=== PATIENT | female | born 1985 | race Caucasian/White ===

== ENCOUNTER 2017-01-29 23:27 | Emergency (ER) | payer OTHER ==
[~2017-01-29] VITALS: Ht 165.1 cm; Wt 55.0 kg
[2017-01-29 23:29] VITALS: BP 132/65; PULSE 86; RESP 16; TEMP 98.3; O2SAT 99
[2017-01-30] MEDS ORDERED: SODIUM CHLOR 0.9% 1000 ML INJ 1,000 ML IV ONE (00:45)
[2017-01-30] MEDS ORDERED: ACETAMINOPHEN 325 MG TAB PO ONE (00:45)
[2017-01-30 01:00] LABS: AUTOMATED NEUTROPHIL # 7.9 TH/MM3 (1.8-7.7); BASOPHIL # 0.1 TH/MM3 (0-0.2); BASOPHIL % 0.6 % (0.0-2.0); EOSINOPHIL # 0.2 TH/MM3 (0-0.4); EOSINOPHIL % 1.6 % (0.0-4.0); HEMATOCRIT 33.9 % (35.0-46.0); HEMOGLOBIN 11.7 GM/DL (11.6-15.3); LYMPH % 28.4 % (9.0-44.0); LYMPHOCYTE # 3.5 TH/MM3 (1.0-4.8); MEAN CELL VOLUME 88.4 FL (80.0-100.0); MEAN CORPUSCULAR HEMOGLOBIN 30.5 PG (27.0-34.0); MEAN CORPUSCULAR HGB CONC 34.5 % (32.0-36.0); MEAN PLATELET VOLUME 8.8 FL (7.0-11.0); MONO % 5.9 % (0.0-8.0); MONOCYTE # 0.7 TH/MM3 (0-0.9); NEUT % 63.5 % (16.0-70.0); PLATELET COUNT 230 TH/MM3 (150-450); RED BLOOD COUNT 3.84 MIL/MM3 (4.00-5.30); RED CELL DISTRIBUTION WIDTH 12.7 % (11.6-17.2); WHITE BLOOD COUNT 12.4 TH/MM3 (4.0-11.0)
[2017-01-30 01:05] LABS: BACTERIA, URINE RARE /hpf; BILIRUBIN, URINE NEG (NEG); BLOOD, URINE NEG (NEG); GLUCOSE,URINE NEG (NEG); KETONE, URINE TRACE mg/dL (NEG); MUCUS URINE FEW /lpf (OCC); NITRITE,URINE NEG (NEG); PH, URINE 5.5 (5.0-8.5); SQUAMOUS EPITHELIAL CELL URINE 10 /hpf (0-5); URINE COLOR YELLOW (YELLW/STRAW); URINE LEUKOCYTE ESTERASE NEG (NEG)
[2017-01-30 01:17] LABS: ALBUMIN 3.4 GM/DL (3.4-5.0); ALT (GPT) 18 U/L (10-53); AST (GOT) 8 U/L (15-37); BICARBONATE 25.7 MEQ/L (21.0-32.0); BLOOD UREA NITROGEN 14 MG/DL (7-18); CALCIUM 8.3 MG/DL (8.5-10.1); CHLORIDE 106 MEQ/L (98-107); GLOMERULAR FILTRATION RATE 118 ML/MIN (>89); GLUCOSE,RANDOM 107 MG/DL (74-106); SODIUM (NA) 138 MEQ/L (136-145)
[2017-01-30 01:35] LABS: ALKALINE PHOSPHATASE 43 U/L (45-117); TOTAL BILIRUBIN ADULT 0.2 MG/DL (0.2-1.0); TOTAL PROTEIN 6.9 GM/DL (6.4-8.2)
[2017-01-30 02:03] VITALS: RESP 16
[2017-01-30] MEDS ORDERED: MACR100C2 PO (02:35)
--- NOTE | 2017-01-30 02:35 | PD ---
HPI Chief Complaint: Abdominal Pain Time Seen by Provider: 00:23 Travel History International Travel<30 days: No Contact w/Intl Traveler<30days: No Traveled to known affect area: No History of Present Illness HPI Patient is a 31-year-old female comes in complaining of lower abdominal cramping and . She says this been going on for the past few days, and got worse today. She also noticed some blood when she went to the bathroom today. She said some nausea, no vomiting. This is her first . She says she thinks her last menstrual period was December 22. She denies fever or chills. She denies any urinary symptoms. PFSH Past Medical History Diminished Hearing: No Reproductive: Yes (OVARIAN CYST) Tetanus Vaccination: Unknown Influenza Vaccination: No ?: Past Surgical History Surgical History: No Previous Surgery Social History Alcohol Use: No Tobacco Use: No Substance Use: No Allergies-Medications (Allergen,Severity, Reaction): Coded Allergies: No Known Allergies (Unverified , 01/29/17) Reported Meds & Prescriptions Reported Meds & Active Scripts Active No Active Prescriptions or Reported Medications Review of Systems Except as stated in HPI: all other systems reviewed are Neg General / Constitutional: No: Fever, Chills HENT: No: Headaches, Lightheadedness Cardiovascular: No: Chest Pain or Discomfort Respiratory: No: Shortness of Breath Gastrointestinal: Positive: Nausea, Abdominal Pain, No: Vomiting Genitourinary: No: Urgency, Frequency, Discharge Skin: No Rash, No Change in Pigmentation Neurologic: No: Weakness, Dizziness Physical Exam Narrative GENERAL: Awake and alert, in no acute distress. SKIN: Focused skin assessment warm/dry. No wounds. HEAD: Atraumatic. Normocephalic. EYES: Pupils equal and round. No scleral icterus. No injection or drainage. ENT: Mucous membranes pink and moist. NECK: Trachea midline. No JVD. CARDIOVASCULAR: Regular rate and rhythm. No murmur appreciated. RESPIRATORY: No accessory muscle use. Clear to auscultation. Breath sounds equal bilaterally. GASTROINTESTINAL: Abdomen soft, non-tender, nondistended. : Exam performed in the presence of a female nurse. Thin white discharge. Os is closed. There is no bleeding. No CMT. MUSCULOSKELETAL: No obvious deformities. No clubbing. No cyanosis. No edema. NEUROLOGICAL: Awake and alert. No obvious cranial nerve deficits. Motor grossly within normal limits. Normal speech. PSYCHIATRIC: Appropriate mood and affect; insight and judgment normal. Data Data Last Documented VS Vital Signs Date Time Temp Pulse Resp B/P (MAP) Pulse Ox O2 Delivery O2 Flow Rate FiO2 01/30/17 02:03 16 01/29/17 23:29 98.3 86 132/65 (87) 99 Room Air Orders Orders Iv Access Insert/Monitor (01/30/17 00:35) Complete Blood Count With Diff (01/30/17 00:35) Comprehensive Metabolic Panel (01/30/17 00:35) Urinalysis - C+S If Indicated (01/30/17 00:35) Ed Urine Pregnancytest Poc (01/30/17 00:35) Beta Hcg (Quant/Titer) (01/30/17 00:35) Sodium Chlor 0.9% 1000 Ml Inj (Ns 1000 M (01/30/17 00:45) Acetaminophen (Tylenol) (01/30/17 00:45) Type And Screen (01/30/17 00:35) Wet Prep Profile (01/30/17 00:43) Gc And Chlamydia Pcr (01/30/17 00:43) Labs Laboratory Tests Test 01/30/17 00:45 White Blood Count 12.4 TH/MM3 Red Blood Count 3.84 MIL/MM3 Hemoglobin 11.7 GM/DL Hematocrit 33.9 % Mean Corpuscular Volume 88.4 FL Mean Corpuscular Hemoglobin 30.5 PG Mean Corpuscular Hemoglobin Concent 34.5 % Red Cell Distribution Width 12.7 % Platelet Count 230 TH/MM3 Mean Platelet Volume 8.8 FL Neutrophils (%) (Auto) 63.5 % Lymphocytes (%) (Auto) 28.4 % Monocytes (%) (Auto) 5.9 % Eosinophils (%) (Auto) 1.6 % Basophils (%) (Auto) 0.6 % Neutrophils # (Auto) 7.9 TH/MM3 Lymphocytes # (Auto) 3.5 TH/MM3 Monocytes # (Auto) 0.7 TH/MM3 Eosinophils # (Auto) 0.2 TH/MM3 Basophils # (Auto) 0.1 TH/MM3 CBC Comment DIFF FINAL Differential Comment Urine Color YELLOW Urine Turbidity HAZY Urine pH 5.5 Urine Specific [place] 1.029 Urine Protein TRACE mg/dL Urine Glucose (UA) NEG mg/dL Urine Ketones TRACE mg/dL Urine Occult Blood NEG Urine Nitrite NEG Urine Bilirubin NEG Urine Urobilinogen LESS THAN 2.0 MG/DL Urine Leukocyte Esterase NEG Urine RBC LESS THAN 1 /hpf Urine WBC 1 /hpf Urine Squamous Epithelial Cells 10 /hpf Urine Bacteria RARE /hpf Urine Mucus FEW /lpf Microscopic Urinalysis Comment CULT NOT INDICATED Clue Cells (Wet Prep) NONE SEEN Vaginal Trichomonas (Wet Prep) NONE SEEN Vaginal Yeast (Wet Prep) NONE SEEN Blood Urea Nitrogen 14 MG/DL Creatinine 0.60 MG/DL Random Glucose 107 MG/DL Total Protein 6.9 GM/DL Albumin 3.4 GM/DL Calcium Level 8.3 MG/DL Alkaline Phosphatase 43 U/L Aspartate Amino Transf (AST/SGOT) 8 U/L Alanine Aminotransferase (ALT/SGPT) 18 U/L Total Bilirubin 0.2 MG/DL Sodium Level 138 MEQ/L Potassium Level 3.1 MEQ/L Chloride Level 106 MEQ/L Carbon Dioxide Level 25.7 MEQ/L Anion Gap 6 MEQ/L Estimat Glomerular Filtration Rate 118 ML/MIN Human Chorionic Gonadotropin, Quant 1365 MIU/ML MDM Medical Decision Making Medical Screen Exam Complete: Yes Emergency Medical Condition: Yes Medical Record Reviewed: Yes Differential Diagnosis UTI versus threatened versus dehydration Narrative Course Patient is a 31-year-old female comes in complaining of lower abdominal cramping in . Exam shows no acute abnormalities. IV established, labs sent. Beta hCG is 1365. This is likely early . Urinalysis shows some bacteria. Patient given IV fluids and Tylenol. She is resting comfortably. She'll be discharged with a prescription for Macrobid. She is advised follow-up with OB. Advised to have her beta hCG repeated in 2 days to make sure it is rising appropriately. Advised to return to the ED as needed for any worsening symptoms. Diagnosis Primary Impression: UTI (urinary tract infection) in in first trimester Patient Instructions: General Instructions, Urinary Tract Infection in (ED) Additional Instructions: Have Your beta hCG repeated in 2 days. Drink plenty of fluids. Take all of your antibiotic. Return to the ED as needed for any worsening symptoms. Scripts Nitrofurantoin Monohydrate Macrocrystals (Macrobid) 100 Mg Capsule 100 MG PO BID for Infection for 7 Days, #14 CAP 0 Refills Prov: Judy Lauren MD 01/30/17 Disposition: 01 DISCHARGE HOME Condition: Stable Judy Lauren MD Jan 30, 2017 02:35
== END 2017-01-30 02:47 | disposition home or self-care (01) ==
LOC: NEPC 23:27
DX: O23.41 Unspecified infection of urinary tract in pregnancy, first trimester (principal); Z3A.00 Weeks of gestation of pregnancy not specified
CPT/HCPCS: 80053; 81001; 84702; 84703; 85025; 86850; 86900; 86901; 87210; 87491; 87591; 99283

== ENCOUNTER 2017-01-31 22:28 | Emergency (ER) | payer OTHER ==
[~2017-01-31] VITALS: Ht 165.1 cm; Wt 55.0 kg
[~2017-01-31 22:28] MED LIST: MACR100C2 PO
[2017-01-31 22:29] VITALS: BP 119/68; PULSE 65; RESP 16; TEMP 98.4; O2SAT 99
--- NOTE | 2017-01-31 23:15 | PD ---
HPI Chief Complaint: Medical Clearance Time Seen by Provider: 22:51 Travel History International Travel<30 days: No Contact w/Intl Traveler<30days: No Traveled to known affect area: No History of Present Illness HPI Patient is a 31-year-old female presenting to the emergency for repeat hCG level. Patient was seen and evaluated 2 days ago, a was confirmed with an HCG level of 1365. She has not had any vaginal bleeding, cramping or related complaints since that time. [facility] Past Medical History Diabetes: No Patient Takes Glucophage: No Diminished Hearing: No Reproductive: Yes (OVARIAN CYST) Immunizations Current: Yes Tetanus Vaccination: > 5 Years Influenza Vaccination: No ?: LMP: 12/22/16 Social History Alcohol Use: No Tobacco Use: No Substance Use: No Allergies-Medications (Allergen,Severity, Reaction): Coded Allergies: No Known Allergies (Unverified , 01/31/17) Reported Meds & Prescriptions Reported Meds & Active Scripts Active Macrobid (Nitrofurantoin Monohydrate Macrocrystals) 100 Mg Capsule 100 Mg PO BID 7 Days Review of Systems Except as stated in HPI: all other systems reviewed are Neg Physical Exam Narrative GENERAL: Well-developed, well-nourished, alert female. Resting in no acute distress. SKIN: Warm and dry. HEAD: Normocephalic. EYES: No scleral icterus. No injection or drainage. NECK: Supple, trachea midline. No JVD or lymphadenopathy. CARDIOVASCULAR: Regular rate and rhythm without murmurs, gallops, or rubs. RESPIRATORY: Breath sounds equal bilaterally. No accessory muscle use. GASTROINTESTINAL: Abdomen soft, non-tender, nondistended. MUSCULOSKELETAL: No cyanosis, or edema. BACK: Nontender without obvious deformity. No CVA tenderness. Data Data Last Documented VS Vital Signs Date Time Temp Pulse Resp B/P (MAP) Pulse Ox O2 Delivery O2 Flow Rate FiO2 01/31/17 22:29 98.4 65 16 119/68 (85) 99 Room Air Orders Orders Beta Hcg (Quant/Titer) (01/31/17 22:51) Labs Laboratory Tests Test 01/31/17 22:57 Human Chorionic Gonadotropin, Quant 2915 MIU/ML MDM Medical Decision Making Medical Screen Exam Complete: Yes Emergency Medical Condition: Yes Medical Record Reviewed: Yes Interpretation(s) Laboratory Tests Test 01/31/17 22:57 Human Chorionic Gonadotropin, Quant 2915 MIU/ML Vital Signs Date Time Temp Pulse Resp B/P (MAP) Pulse Ox O2 Delivery O2 Flow Rate FiO2 01/31/17 22:29 98.4 65 16 119/68 (85) 99 Room Air Differential Diagnosis Threatened versus normal versus abnormal labs versus other Narrative Course Patient presented for repeat HCG level. Her vital signs are stable. Labs ordered and pending. Initial HCG on 01/30/17 was 1355, HCG level today is 2915. Patient is encouraged to follow-up with SIMPLEX OPERATOR, she is encouraged to complete course of antibiotics as previously prescribed. She is encouraged return to emergency department for any new or worsening symptoms. Patient verbalized understanding of instructions. Patient is stable for discharge. Diagnosis Primary Impression: Elevated level of quantitative human chorionic gonadotropin (hCG) for gestational age in early Referrals: Cable Tender Call to schedule an appointment Patient Instructions: First Trimester (ED), General Instructions Additional Instructions: Follow-up with an SIMPLEX OPERATOR Complete course of antibiotics as previously prescribed Return to emergency department for any new or worsening symptoms Med/Other Pt SpecificInfo: No Change to Meds Disposition: 01 DISCHARGE HOME Condition: Stable Sierra Carrizales Jan 31, 2017 23:15
--- NOTE | 2017-01-31 23:15 | PD ---
HPI Chief Complaint: Medical Clearance Time Seen by Provider: 22:51 Travel History International Travel<30 days: No Contact w/Intl Traveler<30days: No Traveled to known affect area: No History of Present Illness HPI Patient is a 31-year-old female presenting to the emergency for repeat hCG level. Patient was seen and evaluated 2 days ago, a was confirmed with an HCG level of 1365. She has not had any vaginal bleeding, cramping or related complaints since that time. [facility] Past Medical History Diabetes: No Patient Takes Glucophage: No Diminished Hearing: No Reproductive: Yes (OVARIAN CYST) Immunizations Current: Yes Tetanus Vaccination: > 5 Years Influenza Vaccination: No ?: LMP: 12/22/16 Social History Alcohol Use: No Tobacco Use: No Substance Use: No Allergies-Medications (Allergen,Severity, Reaction): Coded Allergies: No Known Allergies (Unverified , 01/31/17) Reported Meds & Prescriptions Reported Meds & Active Scripts Active Macrobid (Nitrofurantoin Monohydrate Macrocrystals) 100 Mg Capsule 100 Mg PO BID 7 Days Review of Systems Except as stated in HPI: all other systems reviewed are Neg Physical Exam Narrative GENERAL: Well-developed, well-nourished, alert female. Resting in no acute distress. SKIN: Warm and dry. HEAD: Normocephalic. EYES: No scleral icterus. No injection or drainage. NECK: Supple, trachea midline. No JVD or lymphadenopathy. CARDIOVASCULAR: Regular rate and rhythm without murmurs, gallops, or rubs. RESPIRATORY: Breath sounds equal bilaterally. No accessory muscle use. GASTROINTESTINAL: Abdomen soft, non-tender, nondistended. MUSCULOSKELETAL: No cyanosis, or edema. BACK: Nontender without obvious deformity. No CVA tenderness. Data Data Last Documented VS Vital Signs Date Time Temp Pulse Resp B/P (MAP) Pulse Ox O2 Delivery O2 Flow Rate FiO2 01/31/17 22:29 98.4 65 16 119/68 (85) 99 Room Air Orders Orders Beta Hcg (Quant/Titer) (01/31/17 22:51) Labs Laboratory Tests Test 01/31/17 22:57 Human Chorionic Gonadotropin, Quant 2915 MIU/ML MDM Medical Decision Making Medical Screen Exam Complete: Yes Emergency Medical Condition: Yes Medical Record Reviewed: Yes Interpretation(s) Laboratory Tests Test 01/31/17 22:57 Human Chorionic Gonadotropin, Quant 2915 MIU/ML Vital Signs Date Time Temp Pulse Resp B/P (MAP) Pulse Ox O2 Delivery O2 Flow Rate FiO2 01/31/17 22:29 98.4 65 16 119/68 (85) 99 Room Air Differential Diagnosis Threatened versus normal versus abnormal labs versus other Narrative Course Patient presented for repeat HCG level. Her vital signs are stable. Labs ordered and pending. Initial HCG on 01/30/17 was 1355, HCG level today is 2915. Patient is encouraged to follow-up with SKIMMER REVERBERATORY, she is encouraged to complete course of antibiotics as previously prescribed. She is encouraged return to emergency department for any new or worsening symptoms. Patient verbalized understanding of instructions. Patient is stable for discharge. Diagnosis Primary Impression: Elevated level of quantitative human chorionic gonadotropin (hCG) for gestational age in early Referrals: Property Developer Call to schedule an appointment Patient Instructions: First Trimester (ED), General Instructions Additional Instructions: Follow-up with an SKIMMER REVERBERATORY Complete course of antibiotics as previously prescribed Return to emergency department for any new or worsening symptoms Med/Other Pt SpecificInfo: No Change to Meds Disposition: 01 DISCHARGE HOME Condition: Stable Sierra Carrizales Jan 31, 2017 23:15
--- NOTE | 2017-01-31 23:15 | PD ---
HPI Chief Complaint: Medical Clearance Time Seen by Provider: 22:51 Travel History International Travel<30 days: No Contact w/Intl Traveler<30days: No Traveled to known affect area: No History of Present Illness HPI Patient is a 31-year-old female presenting to the emergency for repeat hCG level. Patient was seen and evaluated 2 days ago, a was confirmed with an HCG level of 1365. She has not had any vaginal bleeding, cramping or related complaints since that time. [facility] Past Medical History Diabetes: No Patient Takes Glucophage: No Diminished Hearing: No Reproductive: Yes (OVARIAN CYST) Immunizations Current: Yes Tetanus Vaccination: > 5 Years Influenza Vaccination: No ?: LMP: 12/22/16 Social History Alcohol Use: No Tobacco Use: No Substance Use: No Allergies-Medications (Allergen,Severity, Reaction): Coded Allergies: No Known Allergies (Unverified , 01/31/17) Reported Meds & Prescriptions Reported Meds & Active Scripts Active Macrobid (Nitrofurantoin Monohydrate Macrocrystals) 100 Mg Capsule 100 Mg PO BID 7 Days Review of Systems Except as stated in HPI: all other systems reviewed are Neg Physical Exam Narrative GENERAL: Well-developed, well-nourished, alert female. Resting in no acute distress. SKIN: Warm and dry. HEAD: Normocephalic. EYES: No scleral icterus. No injection or drainage. NECK: Supple, trachea midline. No JVD or lymphadenopathy. CARDIOVASCULAR: Regular rate and rhythm without murmurs, gallops, or rubs. RESPIRATORY: Breath sounds equal bilaterally. No accessory muscle use. GASTROINTESTINAL: Abdomen soft, non-tender, nondistended. MUSCULOSKELETAL: No cyanosis, or edema. BACK: Nontender without obvious deformity. No CVA tenderness. Data Data Last Documented VS Vital Signs Date Time Temp Pulse Resp B/P (MAP) Pulse Ox O2 Delivery O2 Flow Rate FiO2 01/31/17 22:29 98.4 65 16 119/68 (85) 99 Room Air Orders Orders Beta Hcg (Quant/Titer) (01/31/17 22:51) Labs Laboratory Tests Test 01/31/17 22:57 Human Chorionic Gonadotropin, Quant 2915 MIU/ML MDM Medical Decision Making Medical Screen Exam Complete: Yes Emergency Medical Condition: Yes Medical Record Reviewed: Yes Interpretation(s) Laboratory Tests Test 01/31/17 22:57 Human Chorionic Gonadotropin, Quant 2915 MIU/ML Vital Signs Date Time Temp Pulse Resp B/P (MAP) Pulse Ox O2 Delivery O2 Flow Rate FiO2 01/31/17 22:29 98.4 65 16 119/68 (85) 99 Room Air Differential Diagnosis Threatened versus normal versus abnormal labs versus other Narrative Course Patient presented for repeat HCG level. Her vital signs are stable. Labs ordered and pending. Initial HCG on 01/30/17 was 1355, HCG level today is 2915. Patient is encouraged to follow-up with PROOF TECHNICIAN HELPER, she is encouraged to complete course of antibiotics as previously prescribed. She is encouraged return to emergency department for any new or worsening symptoms. Patient verbalized understanding of instructions. Patient is stable for discharge. Diagnosis Primary Impression: Elevated level of quantitative human chorionic gonadotropin (hCG) for gestational age in early Referrals: Surveillance Sensor Operator Call to schedule an appointment Patient Instructions: First Trimester (ED), General Instructions Additional Instructions: Follow-up with an PROOF TECHNICIAN HELPER Complete course of antibiotics as previously prescribed Return to emergency department for any new or worsening symptoms Med/Other Pt SpecificInfo: No Change to Meds Disposition: 01 DISCHARGE HOME Condition: Stable Sierra Carrizales Jan 31, 2017 23:15
== END 2017-02-01 00:52 | disposition home or self-care (01) ==
LOC: NEPD 22:28
DX: Z32.01 Encounter for pregnancy test, result positive (principal)
CPT/HCPCS: 84702; 99281

== ENCOUNTER 2017-02-11 18:43 | Emergency (ER) | payer OTHER ==
[~2017-02-11] VITALS: Ht 154.9 cm; Wt 55.0 kg
[2017-02-11 18:44] VITALS: BP 124/71; PULSE 90; RESP 20; TEMP 98.1; O2SAT 100
[2017-02-11 20:01] LABS: BLOOD, URINE NEG (NEG); COMMENT (UR) CULT NOT INDICATED; CULTURE IF INDICATED CULT NOT INDICATED; GLUCOSE,URINE NEG (NEG); KETONE, URINE NEG (NEG); NITRITE,URINE NEG (NEG); PH, URINE 6.5 (5.0-8.5); SQUAMOUS EPITHELIAL CELL URINE 1 /hpf (0-5); URINE COLOR COLORLESS (YELLW/STRAW)
[2017-02-11 20:36] LABS: BETA HCG QUANT 39434 MIU/ML (0-5)
--- NOTE | 2017-02-11 20:53 | PD ---
HPI . pelvic pain Chief Complaint: Data Scientist Problem/Complaint Time Seen by Provider: 19:04 Travel History International Travel<30 days: No Contact w/Intl Traveler<30days: No Traveled to known affect area: No History of Present Illness HPI This patient presents with the chief complaint of pelvic pain. It is midline. Onset has been several weeks but it became acutely worse tonight. She describes it as cramping. She rates at 8/10. It is exacerbated by being on her feet all day. Associated symptoms include nausea and a white vaginal discharge. The patient reports that she is 7 and 9 weeks by dates. [facility] Past Medical History High Cholesterol: Yes Diabetes: No Diminished Hearing: No Reproductive: Yes (OVARIAN CYST) Immunizations Current: Yes Tetanus Vaccination: Unknown ?: Past Surgical History Surgical History: No Previous Surgery Social History Alcohol Use: No Tobacco Use: No Substance Use: No Allergies-Medications (Allergen,Severity, Reaction): Coded Allergies: No Known Allergies (Unverified Adverse Reaction, Unknown, 02/11/17) Reported Meds & Prescriptions Reported Meds & Active Scripts Active Review of Systems Except as stated in HPI: all other systems reviewed are Neg Genitourinary: Positive: Pelvic Pain, Discharge Physical Exam Narrative GENERAL: Awake and alert and in no acute distress. SKIN: warm/dry. HEAD: Normocephalic. Atraumatic. EYES: Pupils equal and round. No scleral icterus. No injection or drainage. ENT: No nasal bleeding or discharge. Mucous membranes pink and moist. NECK: Trachea midline. Full range of motion without pain.. CARDIOVASCULAR: Regular rate and rhythm. RESPIRATORY: No accessory muscle use. Clear to auscultation. Breath sounds equal bilaterally. GASTROINTESTINAL: Abdomen soft. Bowel sounds present. Nondistended. Mild suprapubic tenderness. MUSCULOSKELETAL: No obvious deformities. NEUROLOGICAL: Awake and alert. No obvious cranial nerve deficits. Motor grossly within normal limits. Normal speech. PSYCHIATRIC: Appropriate mood and affect; insight and judgment normal. Data Data Last Documented VS Vital Signs Date Time Temp Pulse Resp B/P (MAP) Pulse Ox O2 Delivery O2 Flow Rate FiO2 02/11/17 18:44 98.1 90 20 124/71 (88) 100 Room Air Orders Orders Beta Hcg (Quant/Titer) (02/11/17 19:04) Us Pelvis (Ques Pr/Ect)W Trans (02/11/17 ) Urinalysis - C+S If Indicated (02/11/17 19:04) Ed Poc Ultrasound (02/11/17 19:04) Labs Laboratory Tests Test 02/11/17 19:25 02/11/17 19:35 Urine Color COLORLESS Urine Turbidity CLEAR Urine pH 6.5 Urine Specific [place] 1.006 Urine Protein NEG mg/dL Urine Glucose (UA) NEG mg/dL Urine Ketones NEG mg/dL Urine Occult Blood NEG Urine Nitrite NEG Urine Bilirubin NEG Urine Urobilinogen LESS THAN 2.0 MG/DL Urine Leukocyte Esterase NEG Urine Squamous Epithelial Cells 1 /hpf Urine Amorphous Sediment RARE Microscopic Urinalysis Comment CULT NOT INDICATED Human Chorionic Gonadotropin, Quant 27700 MIU/ML MDM Medical Decision Making Medical Screen Exam Complete: Yes Emergency Medical Condition: Yes Medical Record Reviewed: Yes (patient was seen here on 01/29 with a quantitative hCG of 1365. She was seen again on 01/31 with a quantitative hCG of 2915.) Differential Diagnosis Differential diagnosis of pelvic pain includes but is not limited to UTI, PID, ectopic , spontaneous AB, constipation, viral illness Narrative Course This patient presents stating that she is and is having pelvic pain. UA>>neg Beta HCG 43209 US: 1. Early intrauterine corresponding to 6 weeks 5 day menstrual age. 2. Unremarkable ovaries with small amount of fluid in the cul-de-sac. This patient is stable for discharge to home. She needs to follow-up with OB. Procedures Procedure Narrative Emergency Department Pelvic ultrasound was performed with patient consent. The curvilinear probe was used in the transverse and sagittal views within the suprapubic region revealing a "flicker" in the uterus. Diagnosis Primary Impression: Pelvic pain affecting Qualified Codes: O26.891 - Other specified related conditions, first trimester; R10.2 - Pelvic and perineal pain Patient Instructions: Abdominal Pain in (ED), General Instructions Additional Instructions: You may take Tylenol as needed for pain. You need to get established with an water pump assembler. Disposition: 01 DISCHARGE HOME Condition: Stable Denisha Plaza MD Feb 11, 2017 20:53
--- NOTE | 2017-02-11 21:01 | RADRPT ---
EXAM DATE/TIME: 02/11/2017 20:02 [place] COMPARISON: No previous studies available for comparison. INDICATIONS : Pelvic pain. LAB(S): Beta-hC MEDICAL HISTORY : Glasses. Ovarian cysts. SURGICAL HISTORY : None. ENCOUNTER: Initial ACUITY: 1 day PAIN SCORE: 7/10 LOCATION: Bilateral pelvis MEASUREMENTS: UTERUS: 9.4 x 5.9 x 4.9 cm ENDOMETRIAL STRIPE: 15 mm RIGHT OVARY: 2.9 x 1.3 x 1.5 cm LEFT OVARY: 3.7 x 3.1 x 1.9 cm FREE FLUID: Yes CROWN RUMP LENGTH: 0.8 = 6 WKS 5 DAYS FHR: 154 BPM FINDINGS: UTERUS: There is an early single intrauterine with well-defined gestational sac. The crown-rump glenda gth corresponds to a 6 week 5 day menstrual age. heart rate of 154 beats per minute was obtaine d. RIGHT OVARY: Ovary contains no mass or significant cystic lesion. LEFT OVARY: Ovary contains no mass or significant cystic lesion. MISCELLANEOUS: There is a small amount of free fluid in the cul-de-sac. CONCLUSION: 1. Early intrauterine corresponding to 6 weeks 5 day menstrual age. 2. Unremarkable ovaries with small amount of fluid in the cul-de-sac. Bhavesh Flower MD on February 11, 2017 at 20:58 Board Certified Radiologist. This report was verified electronically.
== END 2017-02-11 21:35 | disposition home or self-care (01) ==
LOC: NEPE 18:43
DX: O26.891 Other specified pregnancy related conditions, first trimester (principal); R10.2 Pelvic and perineal pain; E78.00 Pure hypercholesterolemia, unspecified; Z87.42 Personal history of other diseases of the female genital tract; Z3A.01 Less than 8 weeks gestation of pregnancy
CPT/HCPCS: 76700; 76817; 81001; 84702

== ENCOUNTER 2017-05-28 11:40 | Emergency (ER) | payer OTHER ==
[2017-05-28 12:10] VITALS: PULSE 92
[2017-05-28 12:15] VITALS: PULSE 85
--- NOTE | 2017-05-28 12:25 | PD ---
HPI Chief Complaint low blood pressure, cramping Date Seen: May 28, 2017 Time Seen: 12:19 Travel History International Travel<30 Days: No Contact w/Intl Traveler<30Days: No Known Affected Area: No History of Present Illness HPI Pt is a 31y/o G1 @ 22.3wks. She has PNC with Dr. Allan. She states that yesterday she had an US and while laying down for it, her BP dropped to 90/60 and she was dizzy/nauseous. She was advised to come to the hospital but felt better quickly so she did not. Today, she said she felt like her BP was low again so she came in for evaluation. She states baseline for her is 110/60s. She also reports that she has experienced cramping throughout her . No ctx, LOF, or VB. +FM. She states that she is hydrating with H2O. Weeks Gestation: 22 Para: 0 : 1 History Past Medical History Medical History: Denies Significant Hx Past Surgical History Surgical History: No Previous Surgery Family History Family History: Negative Social History Alcohol Use: No Tobacco Use: No Substance Abuse: No Allergies-Medications (Allergen,Severity, Reaction): Coded Allergies: No Known Allergies (Unverified Adverse Reaction, Unknown, 02/11/17) Review of Systems Except as stated in HPI: all other systems reviewed are Neg Physical Exam Narrative General: well developed, well nourished, no acute distress, petite HEENT: normocephalic atraumatic, extraocular movements intact, neck supple Abdomen: soft, gravid, nontender, nondistended Uterus: fundus at umbilicus Extremities: full range of motion Skin: normal coloration, no rashes, no suspicious skin lesions noted Neurologic: cranial nerves 2-12 grossly intact Psychiatric: normal mood and affect, appropriate FHTs: present @ 140s [place]: quiet Data Data Vital Signs Reviewed: Yes Orders Orders Vital Signs (Adult) .ON ADMISSION (05/28/17 12:18) ^ Labor Status (05/28/17 12:18) Heart (05/28/17 12:18) Urinalysis - C+S If Indicated (05/28/17 12:18) Ed Discharge Order (05/28/17 12:18) MDM Plan 31y/o G1 @ 22.3wks with low blood pressure and cramping. -- +FHTs -- toco quiet -- UA neg for UTI, sp grav 1.015 -- reassured pt that her BP is appropriate for her size, increase oral hydration and include gatorade for the electrolytes -- cramping is chronic Dispo: stable for d/c home with precautions Diagnosis Diagnosis: Primary Impression: 22 weeks gestation of Additional Impressions: Low blood pressure Cramping complicating , antepartum Nixon Fam MD May 28, 2017 12:25
== END 2017-05-28 12:34 | disposition home or self-care (01) ==
LOC: HOBED 11:40
DX: O26.52 Maternal hypotension syndrome, second trimester (principal); Z3A.22 22 weeks gestation of pregnancy
CPT/HCPCS: 99283

== ENCOUNTER 2017-08-19 00:01 | Emergency (ER) | payer OTHER ==
[2017-08-19] MEDS ORDERED: ACETAMINOPHEN 325 MG TAB PO ONE (00:45)
[2017-08-19] MEDS ORDERED: TERBUTALINE INJ 1 MG/ML AMP SQ PRN (00:45)
[2017-08-19] MEDS ORDERED: ONDANSETRON HCL 4 MG/2 ML VIAL IV PUSH ONE (00:45)
--- NOTE | 2017-08-19 00:54 | PD ---
HPI Chief Complaint Abdominal pain, left sided tooth pain only noted today Date Seen: August 19, 2017 Time Seen: 00:47 Travel History International Travel<30 Days: No Contact w/Intl Traveler<30Days: No Known Affected Area: No History of Present Illness HPI Patient is 31-year-old white female at [address] Allan for care and presents complaining of abdominal pain that began today and worsening left-sided jaw and teeth pain noted today, her jaw and tooth ailment is more of a problem for her than anything else hours on exam she is shahram every 3-4 minutes, heart rate tracing is reactive. Patient has had 2 fibronectin is that were positive with Dr. Allan and her office last one positive was 2 weeks ago Weeks Gestation: 34 Para: 0 : 1 History Obstetric History Obstetric History Positive fibronectin sent with this 2 Social History Alcohol Use: No Tobacco Use: No Substance Abuse: No Allergies-Medications (Allergen,Severity, Reaction): Coded Allergies: No Known Allergies (Unverified Adverse Reaction, Unknown, 02/11/17) Review of Systems General / Constitutional: No: Fever, Weight Gain, Chills, Other Eyes: No: Diploplia, Blurred Vision, Visual changes, Pain, Photophobia HENT: Dental Difficulties, No: Headaches, Vertigo, Lightheadedness Cardiovascular: No: Irregular Rhythm, Chest Pain or Discomfort, Palpitations, Tachycardia, Syncope, Varicosities, Edema, Cyanosis Respiratory: No: Cough, Short of Breath, Other Gastrointestinal: Abdominal Pain, No: Nausea, Vomiting, Diarrhea Genitourinary: No: Decreased Urinary Output, Oliguria Musculoskeletal: No: Limited ROM, Weakness, Cramping, Edema, Pain Skin: No Rash, No Itching, No Dryness, No Lumps, No Change in Pigmentation, No Change in Nails, No Alopecia, No Lesions Neurologic: No: Weakness, Dizziness, Syncope, Focal Abnormalities, Coordination Problem, Headache, Slurred Speech, Seizures Psychiatric: No: Depression, Suicidal Ideations, Homicidal Ideation Endocrine: No: Heat Intolerance, Cold Intolerance, Polydipsia, Polyuria, Other Physical Exam Narrative GENERAL: Well-nourished, well-developed patient. SKIN: Warm and dry. HEAD: Normocephalic and atraumatic. EYES: No scleral icterus. No injection or drainage. ENT: No nasal drainage noted. Mucous membranes pink. Airway patent. NECK: Supple, trachea midline. No JVD. CARDIOVASCULAR: Regular rate and rhythm without murmurs, gallops, or rubs. RESPIRATORY: Breath sounds equal bilaterally. No accessory muscle use. BREASTS: Bilateral exam showed no masses , no retractions, no nipple discharge. ABDOMEN/GI: Abdomen soft, non-tender, bowel sounds present, no rebound, no guarding Gravid to [34-] weeks size Fundal Height: [-34] GENITOURINARY: External Genitalia: intact and normal in appearance BUS glands: [-] Cervix: [post-] Dilatation: [External os fingertip internal os closed-] Effacement: [0-] Station: [-3] Membranes: [intact ] Uterine Contractions: [q 3 min-] FHT's: Category: [1-] Baseline: [133-] Reactive: [R-] Variability: [mod-] Decels: [-0] EXTREMITIES: No cyanosis or edema. BACK: Nontender without obvious deformity. No CVA tenderness. NEUROLOGICAL: Awake and alert. Motor and sensory grossly within normal limits. Five out of 5 muscle strength in all muscle groups. Normal speech. Data Data Orders Orders Vital Signs (Adult) .ON ADMISSION (08/19/17 00:45) ^ Labor Status (08/19/17 00:45) ^ Non Stress Test (08/19/17 00:45) Lactated Ringer's 1000 Ml Inj (Lr 1000 M (08/19/17 00:45) Acetaminophen (Tylenol) (08/19/17 00:45) Ondansetron Inj (Zofran Inj) (08/19/17 00:45) Terbutaline Inj (Brethine Inj) (08/19/17 00:45) Labs OB ED urine dip is negative for infection but positive for ketones the patient may be somewhat anorexic MDM Interpretation(s) Patient is 31-year-old white female G one P0 at [address] Allan presents complaining of abdominal pain today but worsening left-sided teeth and jaw pain. heart rate tracing is reactive she is shahram every 3-4 minutes. Cervix is closed at the internal os. Plan Plan is to IV hydrate, sedate, medicate with subcu terbutaline as first-line tocolyse is, as the patient's artery had 2 positive fibronectin last one was 2 weeks ago I did not repeat that tonight If contractions subside then we will discharge home to bedrest, Tylenol, heating pad on her abdomen is needed or hot bath and to follow-up with Dr. Allan, the patient may need to see a dentist about her teeth as I looked in her mouth but cannot see any redness inflammation pus or abnormality Diagnosis Diagnosis: Primary Impression: Threatened labor, antepartum Additional Impressions: Pain in a tooth or teeth 34 weeks gestation of Disposition: 01 DISCHARGE HOME Condition: Stable Patient Instructions: General Instructions, Labor (ED), Movement (ED), Abdominal Pain in (ED) Departure Forms: Tests/Procedures Boby Corbin II, MD August 19, 2017 00:54
[2017-08-19] MEDS ORDERED: LACTATED RINGER'S 1000 ML INJ 1,000 ML IV SCH (01:00)
[2017-08-19 01:04] VITALS: BP 107/62; PULSE 82
[2017-08-19 01:37] VITALS: BP 122/67; PULSE 90
[2017-08-19 02:29] VITALS: BP 118/71; PULSE 104
== END 2017-08-19 03:04 | disposition home or self-care (01) ==
LOC: HOBED 00:01
DX: O47.03 False labor before 37 completed weeks of gestation, third trimester (principal); Z3A.34 34 weeks gestation of pregnancy
CPT/HCPCS: 59025; 96372; 96374; 96375; 99284; J2405; J3010; J3105; J7120

== ENCOUNTER 2017-08-22 20:28 | Observation (INO) | payer OTHER ==
[2017-08-22] VITALS (20 sets, daily range): PULSE 77–91
[~2017-08-22] VITALS: Ht 165.1 cm; Wt 72.6 kg
[2017-08-22] MEDS ORDERED: PREN1TAB45 PO (21:11)
[2017-08-22] MEDS ORDERED: AMOX500C PO (21:11)
--- NOTE | 2017-08-22 21:12 | PD ---
HPI Chief Complaint Contractions Travel History International Travel<30 Days: No Contact w/Intl Traveler<30Days: No Known Affected Area: No History of Present Illness HPI 31y/o , IUP at 34.5 care uncomplicated per patient The patient presents complaining of [place] Sharma contractions that are "out of control." She reports constant lower abdominal pain that is worse with applied pressure and constant pelvic pressure. She reports her contractions have increased over the past 3 days and become very uncomfortable over the past 3 hours. She is unable to report a specific frequency to her contractions, just reports they are constant. She denies any LOF or VB. She reports good FM. She denies any other Ob complaints. 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 Past Surgical History Surgical History: No Previous Surgery Family History Narrative Family History DM CAD RI HTN Hypercholesterolemia Social History Alcohol Use: No Tobacco Use: No Substance Abuse: No Allergies-Medications (Allergen,Severity, Reaction): Coded Allergies: No Known Allergies (Unverified Allergy, Unknown, 08/22/17) Home Meds Reported Medications Amoxicillin (Amoxicillin) 500 Mg Cap, 500 MG PO TID for Infection, CAP 0 Refills 08/22/17 Vit,Calc76/Iron/Folic (Pnv 29-1 Tablet) 29 Mg Iron-1 Mg Tablet, 1 TAB PO DAILY 08/22/17 Review of Systems Except as stated in HPI: all other systems reviewed are Neg Physical Exam Narrative GENERAL: Well-nourished, well-developed patient. SKIN: Warm and dry. HEAD: Normocephalic and atraumatic. EYES: No scleral icterus. No injection or drainage. ENT: No nasal drainage noted. Mucous membranes pink. Airway patent. NECK: Supple, trachea midline. No JVD. CARDIOVASCULAR: Regular rate and rhythm without murmurs, gallops, or rubs. RESPIRATORY: Breath sounds equal bilaterally. No accessory muscle use. BREASTS: Deferred ABDOMEN/GI: Abdomen soft, non-tender, bowel sounds present, no rebound, no guarding Gravid GENITOURINARY: External Genitalia: intact and normal in appearance. Normal EGBUS. No cervical or vaginal masses. Physiologic discharge, grossly normal rugae. SVE 1/ 50/-3. FHT's: EXTREMITIES: No cyanosis or edema. BACK: Nontender without obvious deformity. NEUROLOGICAL: Awake and alert. Motor and sensory grossly within normal limits. Normal speech. Psychiatric: grossly normal memory/affect Musculoskeletal: grossly normal ROM, gait, muscle strength MDM Plan Assessment/Plan: 1. IUP at 34.5 2. Threatened labor: no evidence of labor at this time, will give IVF bolus due to contractions. SVE and was 1 cm in the office earlier this week. Strict labor precautions. Has had a positive FFN on . Would start antibiotics for GBS prophylaxis if in labor. 3. wellbein minute FHR deceleration with tetanic contraction. No further decelerations, discussed with Dr. Adkins, will admit overnight for 23 hour observation for prolonged monitoring and observation for abdominal pain. 4. Urine dip negative Pauline Marcum MD August 22, 2017 21:12
--- NOTE | 2017-08-22 22:14 | PD ---
History of Present Illness History of Present Illness NST report Indications: IUP at 34w, abdominal pain FHR: heart rate baseline in the 120s to 130s with moderate bean picker variability and good accels. The patient had a 5 minute tetanic contraction which was followed by a 3 minute FHR deceleration to the 60s-70s. This resolved with repositioning and did not reoccur. F/U: continue EFM Final dx: IUP at 34w, threatened labor, heart rate deceleration although reassuring at present time Pauline Marcum MD August 22, 2017 22:14
[2017-08-22] MEDS ORDERED: ONDANSETRON ODT 4 MG TAB PO PRN (22:15)
[2017-08-22] MEDS ORDERED: SODIUM CHLORIDE 0.9% FLUSH 10 ML FLUSH IV FLUSH PRN (22:15)
[2017-08-22] MEDS ORDERED: ACETAMINOPHEN 325 MG TAB PO PRN (22:15)
[2017-08-22] MEDS ORDERED: ZOLPIDEM TARTRATE 5 MG TAB PO PRN (22:15)
[2017-08-22] MEDS ORDERED: LACTATED RINGER'S 1000 ML INJ 1,000 ML IV ONE (22:45)
[2017-08-22] MEDS ORDERED: AMOXICILLIN (TRIHYDRATE) 500 MG CAP PO ONE (23:45)
[2017-08-23] VITALS (83 sets, daily range): BP systolic 100–111; BP diastolic 57–66; PULSE 77–99; RESP 18; TEMP 98.1
[2017-08-23 00:15] LABS: AUTOMATED NEUTROPHIL # 10.3 TH/MM3 (1.8-7.7); BASOPHIL # 0.1 TH/MM3 (0-0.2); BASOPHIL % 0.4 % (0.0-2.0); EOSINOPHIL # 0.1 TH/MM3 (0-0.4); EOSINOPHIL % 0.8 % (0.0-4.0); HEMATOCRIT 31.7 % (35.0-46.0); HEMOGLOBIN 11.2 GM/DL (11.6-15.3); LYMPH % 18.5 % (9.0-44.0); LYMPHOCYTE # 2.6 TH/MM3 (1.0-4.8); MEAN CELL VOLUME 90.7 FL (80.0-100.0); MEAN CORPUSCULAR HEMOGLOBIN 31.9 PG (27.0-34.0); MEAN CORPUSCULAR HGB CONC 35.2 % (32.0-36.0); MEAN PLATELET VOLUME 8.9 FL (7.0-11.0); MONO % 6.3 % (0.0-8.0); MONOCYTE # 0.9 TH/MM3 (0-0.9); PLATELET COUNT 200 TH/MM3 (150-450); RED CELL DISTRIBUTION WIDTH 12.9 % (11.6-17.2); WHITE BLOOD COUNT 13.9 TH/MM3 (4.0-11.0)
--- NOTE | 2017-08-23 07:51 | PD.OB.ANTE ---
Subjective Diagnosis: (1) contractions Diagnosis: Principal Antepartum ROS: Reports: Contractions, Other (31 yo G1 came for contractions and had 3 minute variable. She had good movement and no change of cervix overnight) Objective Vital Signs Vital Signs Date Time Temp Pulse Resp B/P (MAP) Pulse Ox O2 Delivery O2 Flow Rate FiO2 08/23/17 06:40 96 08/23/17 06:35 96 08/23/17 06:25 90 08/23/17 06:20 91 08/23/17 06:15 89 08/23/17 06:10 86 08/23/17 06:05 85 08/23/17 06:00 81 08/23/17 05:55 79 08/23/17 05:50 98.1 82 18 08/23/17 05:45 83 08/23/17 05:40 92 08/23/17 05:35 82 08/23/17 05:33 84 101/60 (74) 08/23/17 05:30 85 08/23/17 05:20 86 08/23/17 05:15 90 08/23/17 05:10 94 08/23/17 05:05 87 08/23/17 05:00 82 08/23/17 04:55 77 08/23/17 04:50 86 08/23/17 04:45 90 08/23/17 04:40 93 08/23/17 04:35 84 08/23/17 04:30 93 08/23/17 04:25 86 08/23/17 04:20 87 08/23/17 04:15 87 08/23/17 04:10 86 08/23/17 04:05 87 08/23/17 04:00 87 08/23/17 03:55 87 08/23/17 03:50 88 08/23/17 03:45 87 08/23/17 03:40 90 08/23/17 03:30 93 08/23/17 03:25 98 08/23/17 03:20 93 08/23/17 03:15 90 08/23/17 03:10 96 08/23/17 03:05 93 08/23/17 02:55 94 08/23/17 02:50 96 08/23/17 02:45 98 08/23/17 02:40 94 08/23/17 02:35 97 08/23/17 02:30 98 08/23/17 02:25 94 08/23/17 02:20 93 08/23/17 02:15 92 08/23/17 02:10 96 08/23/17 02:05 96 08/23/17 02:00 93 08/23/17 01:55 93 08/23/17 01:45 92 08/23/17 01:40 93 08/23/17 01:35 92 08/23/17 01:30 89 08/23/17 01:25 86 08/23/17 01:20 88 08/23/17 01:15 85 08/23/17 01:10 85 08/23/17 01:05 88 08/23/17 01:02 85 100/57 (71) 08/23/17 01:00 97 08/23/17 00:55 91 08/23/17 00:50 86 08/23/17 00:45 89 08/23/17 00:40 93 08/23/17 00:35 95 08/23/17 00:30 99 08/23/17 00:25 98 08/23/17 00:15 85 08/23/17 00:10 81 08/23/17 00:05 84 08/23/17 00:00 84 08/22/17 23:55 85 08/22/17 23:50 83 08/22/17 23:45 79 08/22/17 23:35 84 08/22/17 23:30 78 08/22/17 23:25 82 08/22/17 23:20 81 08/22/17 23:15 78 08/22/17 23:10 77 08/22/17 23:05 82 08/22/17 23:00 81 08/22/17 22:55 83 08/22/17 22:50 82 08/22/17 22:45 81 08/22/17 22:40 84 08/22/17 22:35 84 08/22/17 22:30 78 08/22/17 22:25 91 08/22/17 22:20 82 08/22/17 22:15 89 Lab & Micro Results Test 08/22/17 23:05 White Blood Count 13.9 TH/MM3 Red Blood Count 3.50 MIL/MM3 Hemoglobin 11.2 GM/DL Hematocrit 31.7 % Mean Corpuscular Volume 90.7 FL Mean Corpuscular Hemoglobin 31.9 PG Mean Corpuscular Hemoglobin Concent 35.2 % Red Cell Distribution Width 12.9 % Platelet Count 200 TH/MM3 Mean Platelet Volume 8.9 FL Neutrophils (%) (Auto) 74.0 % Lymphocytes (%) (Auto) 18.5 % Monocytes (%) (Auto) 6.3 % Eosinophils (%) (Auto) 0.8 % Basophils (%) (Auto) 0.4 % Neutrophils # (Auto) 10.3 TH/MM3 Lymphocytes # (Auto) 2.6 TH/MM3 Monocytes # (Auto) 0.9 TH/MM3 Eosinophils # (Auto) 0.1 TH/MM3 Basophils # (Auto) 0.1 TH/MM3 CBC Comment DIFF FINAL Differential Comment Physical Exam GENERAL: Well-nourished, well-developed patient. CARDIOVASCULAR: Regular rate and rhythm without murmurs, gallops, or rubs. RESPIRATORY: Breath sounds equal bilaterally. No accessory muscle use. ABDOMEN/GI: Abdomen soft, non-tender. Fundus: [-] GENITOURINARY: External Genitalia: intact and normal in appearance Cervix: [-] Dilatation: 1 Effacement: 50 Station: -1 Presentation:vtx Membranes: intact Uterine Contractions: irregular FHT's: Category: 1 Baseline: [-] Reactive: [-] Variability: [-] Decels: [-] EXTREMITIES: No cyanosis or edema, non-tender, without signs of DVT. Assessment and Plan Problem List: (1) contractions ICD Codes: O47.9 - False labor, unspecified Assessment and Plan doing well. BPP today performed by me at bedside 11/20 with no breathing. Few breaths and a lot movement but no continous breathing. Ok to DC home despite CTX no cervical change still 1 cm at 34 6/7 weeks Loco Adkins MD August 23, 2017 07:51
--- NOTE | 2017-08-23 07:53 | HHI.DCPOC ---
Discharge Care Plan Diagnosis: (1) contractions Report Symptoms to Your Doctor -Temperature above 100.5 degrees -Redness, of incision or excessive or foul smelling drainage -Unusual pain or calf pain -Increased vaginal bleeding -Painful or difficulty urinating -Feelings of extreme sadness or anxiety after 2 weeks Goals to Promote Your Health * To prevent worsening of your condition and complications * To maintain your health at the optimal level Directions to Meet Your Goals Take your medications as prescribed Follow your dietary instruction Follow activity as directed Ensure plenty of rest for recovery Drink fluids for hydration Keep your appointments as scheduled Take your immunizations and boosters as scheduled If your symptoms worsen call your PCP, if no PCP go to Urgent Care Center or Emergency Room Smoking is Dangerous to Your Health. Avoid second hand smoke Call the 24-hour crisis hotline for domestic abuse at Loco Adkins MD August 23, 2017 07:53
--- NOTE | 2017-08-23 07:54 | HHI.DS ---
Admission Date August 22, 2017 at 21:36 Discharge Date: August 23, 2017 Admitting Diagnosis Diagnosis: (1) contractions Diagnosis: Principal ICD Codes: O47.9 - False labor, unspecified Brief History 31y/o , IUP at 34.5 care uncomplicated per patient The patient presents complaining of [place] Sharma contractions that are "out of control." She reports constant lower abdominal pain that is worse with applied pressure and constant pelvic pressure. She reports her contractions have increased over the past 3 days and become very uncomfortable over the past 3 hours. She is unable to report a specific frequency to her contractions, just reports they are constant. She denies any LOF or VB. She reports good FM. She denies any other Ob complaints. 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
[2017-08-23] MEDS ORDERED: DOCUSATE SODIUM 100 MG CAP PO SCH (09:00)
[2017-08-23] MEDS ORDERED: AMOXICILLIN (TRIHYDRATE) 500 MG CAP PO SCH ×2 (09:00)
[2017-08-23] MEDS ORDERED: SODIUM CHLORIDE 0.9% FLUSH 10 ML FLUSH IV FLUSH SCH (09:00)
[2017-08-23] MEDS ORDERED: MULTIVIT/MIN/PREN/FOL AC/IRON PRENATAL TAB PO SCH (09:00)
== END 2017-08-23 08:28 | disposition home or self-care (01) ==
LOC: HOBED 20:28 → H2EA 21:36
PROVIDERS: ADMIT Obstetrics & Gynecology; ATTEND Obstetrics & Gynecology
DX: O60.03 Preterm labor without delivery, third trimester (principal); O62.4 Hypertonic, incoordinate, and prolonged uterine contractions; Z3A.34 34 weeks gestation of pregnancy
CPT/HCPCS: 59025; 76815; 85025; 86900; 86901; 96360; 96361; 99285; G0378; J7120

== ENCOUNTER 2017-09-29 04:58 | Inpatient (IN) | payer OTHER ==
[2017-09-29] VITALS (89 sets, daily range): BP systolic 104–140; BP diastolic 57–97; PULSE 70–130; RESP 16–20; TEMP 98–98.7
[~2017-09-29] VITALS: Ht 165.1 cm; Wt 77.0 kg
[~2017-09-29 04:58] MED LIST changes: +AMOX500C PO; -MACR100C2 PO; +PREN1TAB45 PO
[2017-09-29] MEDS ORDERED: CITRIC ACID-SODIUM CITRATE LIQ 30 ML UDC PO SCH (05:30)
[2017-09-29] MEDS ORDERED: LIDOCAINE HCL 1% 50 ML VIAL INFIL PRN (05:30)
[2017-09-29] MEDS ORDERED: LACTATED RINGER'S 1000 ML IV SCH (05:30)
[2017-09-29] MEDS ORDERED: MINERAL OIL 10 ML VIAL TOPICAL PRN (05:30)
[2017-09-29] MEDS ORDERED: NS 500 ML BOLUS IV PRN (05:30)
[2017-09-29] MEDS ORDERED: NS 1000 ML IV PRN (05:30)
[2017-09-29] MEDS ORDERED: OXYTOCIN 30 UNITS/NS 500ML PREMIX IV PRN (05:30)
[2017-09-29] MEDS ORDERED: LIDOCAINE HCL 1% 50 ML VIAL I-DERMAL PRN (05:30)
[2017-09-29] MEDS ORDERED: LACTATED RINGER'S 1000 ML BOLUS IV PRN (05:30)
[2017-09-29] MEDS ORDERED: OXYTOCIN 30 UNITS 500ML PREMIX IV ONE (05:30)
[2017-09-29] MEDS ORDERED: ONDANSETRON ODT 4 MG TAB PO PRN ×2 (05:45→14:15)
[2017-09-29 06:17] LABS: AUTOMATED NEUTROPHIL # 7.5 TH/MM3 (1.8-7.7); BASOPHIL # 0.1 TH/MM3 (0-0.2); BASOPHIL % 0.5 % (0.0-2.0); EOSINOPHIL # 0.1 TH/MM3 (0-0.4); EOSINOPHIL % 1.2 % (0.0-4.0); HEMATOCRIT 33.1 % (35.0-46.0); HEMOGLOBIN 11.4 GM/DL (11.6-15.3); LYMPH % 24.3 % (9.0-44.0); LYMPHOCYTE # 2.7 TH/MM3 (1.0-4.8); MEAN CELL VOLUME 91.6 FL (80.0-100.0); MEAN CORPUSCULAR HEMOGLOBIN 31.5 PG (27.0-34.0); MEAN CORPUSCULAR HGB CONC 34.4 % (32.0-36.0); MEAN PLATELET VOLUME 9.3 FL (7.0-11.0); MONO % 6.5 % (0.0-8.0); MONOCYTE # 0.7 TH/MM3 (0-0.9); NEUT % 67.5 % (16.0-70.0); PLATELET COUNT 210 TH/MM3 (150-450); RED BLOOD COUNT 3.62 MIL/MM3 (4.00-5.30); RED CELL DISTRIBUTION WIDTH 13.2 % (11.6-17.2); WHITE BLOOD COUNT 11.1 TH/MM3 (4.0-11.0)
[2017-09-29 06:41] LABS: BACTERIA, URINE RARE /hpf; BILIRUBIN, URINE NEG (NEG); BLOOD, URINE NEG (NEG); GLUCOSE,URINE NEG (NEG); KETONE, URINE NEG (NEG); MUCUS URINE FEW /lpf (OCC); NITRITE,URINE NEG (NEG); SQUAMOUS EPITHELIAL CELL URINE 11 /hpf (0-5); URINE COLOR YELLOW (YELLW/STRAW); URINE LEUKOCYTE ESTERASE NEG (NEG)
[2017-09-29] MEDS ORDERED: fentaNYL 2MCG-BUPIV 0.125% INJ 150 ML EPIDURAL ONE (09:06)
[2017-09-29] MEDS ORDERED: DO NOT ADMINISTER ANTICOAGULANTS PRN (10:45)
[2017-09-29] MEDS ORDERED: ePHEDrine/NS 25 MG/5 ML SYRINGE IV PUSH PRN (10:45)
[2017-09-29] MEDS ORDERED: NO SYSTEM NARCOTICS PRN (10:45)
[2017-09-29] MEDS ORDERED: fentaNYL 2MCG-BUPIV 0.125% 150 ML EPIDURAL PRN (10:45)
--- NOTE | 2017-09-29 14:14 | PD.OB.DELI ---
Anesthesia: Epidural Episiotomy: Midline Vaginal Delivery: Normal Nuchal Cord: x1 Delayed cord clamping (45 sec): Yes Infant: Male Delivery date: Sep 29, 2017 Delivery time: 13:55 One Minute : 9 Five Minute : 9 Placenta: Spontaneous delivery, Intact, 3 vessel cord Laceration: Episiotomy, No lacerations, 2 deg Repair: Chromic interrupted, Chromic running Estimated blood loss: 300 Ivis Allan MD Sep 29, 2017 14:14
[2017-09-29] MEDS ORDERED: oxyCODONE/ACETAMINOPHEN 5 MG/325 MG TAB PO PRN (14:15)
[2017-09-29] MEDS ORDERED: SODIUM CHLORIDE 0.9% FLUSH 10 ML FLUSH IV FLUSH PRN (14:15)
[2017-09-29] MEDS ORDERED: ALUMINUM/MAGNESIUM/SIMETH 30 ML CUP PO PRN (14:15)
[2017-09-29] MEDS ORDERED: BENZOCAINE 20% TOPICAL SPRAY 60 ML CAN TOPICAL PRN (14:15)
[2017-09-29] MEDS ORDERED: WITCH HAZEL 50%/GLYCERIN 12.5% 40 PAD JAR TOPICAL PRN (14:15)
[2017-09-29] MEDS ORDERED: OXYTOCIN 30 UNITS-500ML PREMIX 500 ML IV SCH (14:15)
[2017-09-29] MEDS ORDERED: DIPHTH/TETANUS/ACEL PERTUSSIS (BOOSTER) 0.5 ML VIAL/PFS IM ONE (16:00)
[2017-09-29] MEDS ORDERED: MEASLES, MUMPS, RUBELLA VACCINE 0.5 ML VIAL SQ ONE (16:00)
[2017-09-29] MEDS ORDERED: ZOLPIDEM TARTRATE 5 MG TAB PO PRN (21:00)
[2017-09-29] MEDS ORDERED: SODIUM CHLORIDE 0.9% FLUSH 10 ML FLUSH IV FLUSH SCH (21:00)
[2017-09-29] MEDS: DOCUSATE SODIUM 50 MG/SENNA 8.6 MG TAB PO PRN (22:04)
[2017-09-29] MEDS: IBUPROFEN 800 MG TAB PO PRN (22:04)
[2017-09-29] MEDS: ACETAMINOPHEN 325 MG TAB PO PRN (22:04)
[2017-09-30] MEDS: ACETAMINOPHEN 325 MG TAB PO PRN (11:53)
[2017-09-30] MEDS: IBUPROFEN 800 MG TAB PO PRN ×2 (11:54→21:54)
--- NOTE | 2017-09-30 12:35 | HHI.OB ---
Subjective Post Day: 1 Remarks Pt doing well, co some episiotomy pain Objective Vitals/I&O Vital Signs Date Time Temp Pulse Resp B/P (MAP) Pulse Ox O2 Delivery O2 Flow Rate FiO2 09/29/17 21:09 98.1 97 20 134/74 (94) 09/29/17 16:45 18 09/29/17 16:30 93 114/77 (89) 09/29/17 16:00 90 111/73 (86) 09/29/17 15:15 18 09/29/17 15:15 98.1 09/29/17 15:00 93 135/74 (94) 09/29/17 14:45 18 09/29/17 14:30 98 124/77 (93) 09/29/17 14:30 17 09/29/17 14:22 99 112/68 (83) 09/29/17 13:45 18 09/29/17 13:40 121 09/29/17 13:35 112 09/29/17 13:35 130 09/29/17 13:31 108 125/97 (106) 09/29/17 13:30 115 09/29/17 13:30 115 09/29/17 13:25 104 18 09/29/17 13:25 93 09/29/17 13:20 96 09/29/17 13:20 96 09/29/17 13:16 104 125/76 (92) 09/29/17 13:15 85 09/29/17 13:15 85 09/29/17 12:45 18 09/29/17 12:40 98 09/29/17 12:40 100 09/29/17 12:35 82 09/29/17 12:35 88 Objective Remarks GENERAL: Well-nourished, well-developed patient. CARDIOVASCULAR: Regular rate and rhythm without murmurs, gallops, or rubs. RESPIRATORY: Breath sounds equal bilaterally. No accessory muscle use. ABDOMEN/GI: Abdomen soft, non-tender. Fundus: Firm, non-tender at umbilicus. GENITOURINARY: Light to moderate bleeding. EXTREMITIES: No cyanosis or edema, non-tender, without signs of DVT. Medications and IVs Current Medications Medications (Trade) Dose Ordered Sig/Yusuf Route Start Time Stop Time Status Last Admin Lactated Ringer's 1,000 ml @ 125 mls/hr Q8H IV 09/29/17 05:30 09/29/17 06:04 Lactated Ringer's 1,000 ml @ 3,000 mls/hr BOLUS PRN IV 09/29/17 05:30 09/29/17 09:12 Sodium Chloride 500 ml @ 1,000 mls/hr BOLUS PRN IV 09/29/17 05:30 Sodium Chloride 1,000 ml @ 100 mls/hr Q10H PRN IV 09/29/17 05:30 (Xylocaine 1% Inj (50 ml)) 0.1 ml UNSCH X1 PRN I-DERMAL 09/29/17 05:30 10/06/17 05:29 (Bicitra Liq) 30 ml SHOP LABORER PO 09/29/17 05:30 10/02/17 05:29 (Xylocaine 1% Inj (50 ml)) 10 ml UNSCH X1 PRN INFIL 09/29/17 05:30 10/06/17 05:29 (Muri-Lube Oil) 10 ml UNSCH PRN TOPICAL 09/29/17 05:30 Fentanyl/ Bupivacaine/ Sodium Chlor 150 ml @ 0 mls/hr TITRATE PRN EPIDURAL 09/29/17 10:45 09/29/17 16:38 (NS Flush) 2 ml BID IV FLUSH 09/29/17 21:00 (NS Flush) 2 ml UNSCH PRN IV FLUSH 09/29/17 14:15 (Tylenol) 650 mg Q4H PRN PO 09/29/17 14:15 09/30/17 11:53 (Motrin) 800 mg Q8H PRN PO 09/29/17 14:15 09/30/17 11:54 (Percocet 5-325 Mg) 1 tab Q4H PRN PO 09/29/17 14:15 (Percocet 5-325 Mg) 2 tab Q4H PRN PO 09/29/17 14:15 (Americaine 20% Top Spr) 1 spray Q4H PRN TOPICAL 09/29/17 14:15 09/29/17 22:03 (Tucks Pads) 1 applic QID PRN TOPICAL 09/29/17 14:15 09/29/17 22:03 (Radha-Colace) 2 tab Q12H PRN PO 09/29/17 14:15 09/29/17 22:04 (Ambien) 5 mg HS PRN PO 09/29/17 21:00 (Mag-Al Plus Susp Liq) 15 ml Q8H PRN PO 09/29/17 14:15 (Zofran Odt) 4 mg Q6H PRN PO 09/29/17 14:15 Assessment/Plan Assessment and Plan PPD # 1 s/p doing well, routine care Ivis Allan MD Sep 30, 2017 12:35
[2017-09-30] MEDS: oxyCODONE/ACETAMINOPHEN 5 MG/325 MG TAB PO PRN ×2 (12:38→21:53)
[2017-10-01] MEDS: DOCUSATE SODIUM 50 MG/SENNA 8.6 MG TAB PO PRN (06:41)
[2017-10-01] MEDS ORDERED: OXYC1TAB63 PO (08:01)
--- NOTE | 2017-10-01 08:02 | HHI.DCPOC ---
Discharge Care Plan Your Health Problems Are: Vaginal delivery Report Symptoms to Your Doctor -Temperature above 100.5 degrees -Redness, of incision or excessive or foul smelling drainage -Unusual pain or calf pain -Increased vaginal bleeding -Painful or difficulty urinating -Feelings of extreme sadness or anxiety after 2 weeks Goals to Promote Your Health * To prevent worsening of your condition and complications * To maintain your health at the optimal level Directions to Meet Your Goals Take your medications as prescribed Follow your dietary instruction Follow activity as directed Ensure plenty of rest for recovery Drink fluids for hydration Keep your appointments as scheduled Take your immunizations and boosters as scheduled If your symptoms worsen call your PCP, if no PCP go to Urgent Care Center or Emergency Room Smoking is Dangerous to Your Health. Avoid second hand smoke Call the 24-hour crisis hotline for domestic abuse at Ivis Allan MD Oct 01, 2017 08:02
--- NOTE | 2017-10-01 08:03 | HHI.DS ---
Admission Date Sep 29, 2017 at 04:58 Admitting Diagnosis Diagnosis: Delivery Date: Sep 29, 2017 Vaginal Delivery: Normal Infant: Male Pt Condition on Discharge: Good Discharge Disposition: Discharge Home Discharge Instructions Diet Instructions: As Tolerated, No Restrictions Activities You Can Perform: Pelvic Rest Ivis Allan MD Oct 01, 2017 08:03
== END 2017-10-01 11:38 | disposition home or self-care (01) | DRG 775 ==
LOC: H2EB 04:58 → H1EA 17:34
PROVIDERS: ADMIT Obstetrics & Gynecology; ATTEND Obstetrics & Gynecology
PROC: 10E0XZZ Delivery of Products of Conception, External Approach (ICD-10-PCS; principal; 2017-09-29)
PROC: 0W8NXZZ Division of Female Perineum, External Approach (ICD-10-PCS; 2017-09-29)
PROC: 3E0R3BZ Introduction of Anesthetic Agent into Spinal Canal, Percutaneous Approach (ICD-10-PCS; 2017-09-29)
PROC: 00HU33Z Insertion of Infusion Device into Spinal Canal, Percutaneous Approach (ICD-10-PCS; 2017-09-29)
PROC: 3E033VJ Introduction of Other Hormone into Peripheral Vein, Percutaneous Approach (ICD-10-PCS; 2017-09-29)
DX: O75.89 Other specified complications of labor and delivery (principal); Z37.0 Single live birth; Z3A.40 40 weeks gestation of pregnancy
CPT/HCPCS: 80307; 81001; 85025; G0481; J2590; J3010; J7120